=== PATIENT | female | born 1995 | race Caucasian/White ===

== ENCOUNTER 2024-01-17 14:25 | Outpatient (CLI) | payer OTHER, SELFPAY ==
[2024-01-17 14:36] VITALS: BP 125/70; PULSE 70
[2024-01-17 14:37] VITALS: PULSE 74; O2SAT 99
--- NOTE | 2024-01-17 14:43 | CRLHL7_ITS ---
For Patients: As a result of the Cures Act, medical imaging exams and procedure reports are released immediately into your electronic medical record. You may view this report before your referring provider. If you have questions, please contact your health care provider. INDICATION: Fall. Cervical check. TECHNIQUE: Transabdominal pelvic ultrasound, limited. COMPARISON: None. FINDINGS: Single living intrauterine with vertex orientation. heart rate is 150 beats per minute. Anterior placenta with possible posterior accessory component otherwise appears intact. Amniotic fluid appears within normal limits, with single deepest pocket of 6.4 cm. Closed cervical length is 3.3 cm. IMPRESSION: 1. Single living intrauterine with heart rate of 150 beats per minute. 2. Closed cervical length of 3.3 cm. Dictated by Jaun Irving MD @ 01/17/2024 4:44:55 PM Dictated by: Jaun Irving MD @ 01/17/2024 16:45:04 (Electronically Signed)
[2024-01-17 14:52] VITALS: RESP 16; TEMP 36.6
[2024-01-17 16:53] LABS: Clue Cells No Clue Cells Seen (None Seen); Trichomonas No Trichomonas Seen (None Seen); Yeast No Yeast Seen (None Seen)
[2024-01-17 18:29] VITALS: BP 117/70; PULSE 64
[2024-01-17 18:30] VITALS: RESP 18; TEMP 36.6
--- NOTE | 2024-01-17 19:50 | PC.OBNST ---
NST Note NST Note Start: 01/17/24 14:43 Freq: ONCE Status: Active Protocol: Document 01/17/24 19:48 MMB (Rec: 01/17/24 19:49 MMB [id number]) NST Note 2 Para (# of births) 1 EDC 03/27/24 Gestational Age In Weeks & Days 30 Weeks & 0 Days Patient Presented with Complaint(s) of Contractions/cramping, Observation after an injury If Observation after an injury, describe Fall onto buttock at 1015 onto hardwood Reactive Yes Appropriate for Gestational Age Yes RANDOLPH Hayes RN Date 01/17/24 Reactive Yes Appropriate for Gestational Age Yes RANDOLPH Mendoza RN Date 01/17/24 OB NST charge Yes Complete NST Note via Write Note Yes The provider's electronic signature indicates the NST is reactive/appropriate for gestational age. *Note to provider: If an addendum is required, open the patient's chart and click on the note under the Nurse/Allied Health tab.
== END 2024-01-17 18:40 | disposition home or self-care (01) ==
LOC: OB OUT 14:25 → OB 14:25
PROVIDERS: PCP Family Medicine; Visit Provider Family Medicine
DX: O47.03 False labor before 37 completed weeks of gestation, third trimester (principal); Z3A.30 30 weeks gestation of pregnancy
CPT/HCPCS: 59025; 76815; 76817; 84112; 87210; G0463

== ENCOUNTER 2024-03-20 05:15 | Inpatient (IN) | payer OTHER, SELFPAY ==
[2024-03-20] VITALS (14 sets, daily range): BP systolic 116–138; BP diastolic 61–81; PULSE 69–96; RESP 16–18; TEMP 36.7–36.9; BMI 23.4
--- NOTE | 2024-03-20 05:55 | PM.OBHPLI ---
OB - H&P: HPI Labor/Induction History of Present Illness Time Seen by Provider: 05:55 Date Seen: 03/20/24 Chief Complaint: The patient is a 28 year old 2 para 1 at 39.0 weeks gestation by LMP and consistent with 8 week ultrasound, who presents with active labor. Patient was scheduled for IOL for IUGR today. However, came in jesus and is 6 cm. Chief complaint: Maternity : 2 Para: 1 Date of last menstrual period: 06/21/23 Estimated date of delivery: 03/27/24 Gestational age based on last menstrual period: 39 Indications for induction: other (Growth restriction. ) Narrative: Nikkie Mak is a 28 year old female 2 para 1 at 39.0 weeks gestation by LMP and consistent with 8 week ultrasound, who presents with active labor. Patient was scheduled for IOL for IUGR today. However, came in jesus and is 6 cm. Patient's membranes were swept yesterday in clinic. She started jesus shortly therafter (was 3-4 cm in clinic). She contracted irregularly throughout the day. She woke at 3am with more intense contractions. She has not had loss of fluid. Has had some bloody show following membrane sweep in clinic. She otherwise feels well. Tired, didn't get much rest last night. Comments: IUGR, likely accessory placental lobe. History of Present Dating criteria: based on LMP (consistent with 8 week ultrasound) care: good care Ultrasounds: normal 1st trimester US and abnormal US findings Abnormal ultrasound findings: Patient has Growth restriction. Did have increased resistance of umbilical dopplers at 36 weeks, that has resolved and BPP weekly have been within normal limits. Estimated growth this week was 2920 (percentile was not given by perinatology). Recommended IOL at 39 weeks. Percentiles have been 48% at 20 weeks, 8% at 28 weeks, 30 %ile at 30 weeks, 7 percentile at 34 weeks (ac <2%), 15 % at 35 weeks. complications comment: IUGR, likely accessory placenta lobe. Medical complications: none Labs Blood type: AB (+) positive Rubella: immune RPR/VDLR: nonreactive GBS status: negative HBsAG: negative Review of Systems Status of ROS: Reports: 10 or more systems reviewed and unremarkable except as noted in History and below Meds Home Medications and Allergies Home Medications ?Medication ?Instructions ?Recorded ?Confirmed ?Type and DHA 1 tab PO DAILY 01/17/24 01/17/24 History Allergies Allergy/AdvReac Type Severity Reaction Status Date / Time minocycline Allergy Severe Hives Verified 01/17/24 15:03 OB - H&P: Exam Physical Exam: Vital signs: Temp Pulse Resp BP 98.1 F 96 18 117/67 03/20/24 05:50 03/20/24 05:07 03/20/24 05:50 03/20/24 05:07 Constitutional: Constitutional: no acute distress (uncomfortable and breathing through contractions. ) Routine HEENT Exam: Head: Present atraumatic and normal inspection Routine Neck Exam: Neck: Present full ROM Routine Respiratory Exam: Respiratory: Present CTA bilaterally Routine Cardiovascular Exam: Cardiovascular: RRR, S1 and S2 Detailed Labor and Delivery Exam: Patient Gravid: Yes Dilation (cm): 6 Effacement (%): 90 Contraction frequency (min): 3 Contraction intensity: Strong/Firm Fetus (Single): Station: -2 Amniotic Membrane Status: intact Heart Rate Baseline: 120 Monitor Accelerations: Present Monitor Decelerations: Variable Intermediate Variability: Moderate (6-25) Routine Skin Exam: Present intact Routine Neurological Exam: Present alert and oriented X3 Routine Psychiatric Exam: Present normal affect OB - Problem Based A/P Additional Plan (1) Term : Problem details: Presented in active labor Status: Acute (2) IUGR (intrauterine growth restriction): Problem details: IUGR, will need peds at delivery. Dr. Blum aware Status: Acute Delivery/Labor/Induction Plan Plan: expectant management (may consider AROM if not progressing. )
--- NOTE | 2024-03-20 07:34 | PM.OBPNL ---
Subjective Time Seen by Provider: 07:34 Date Seen: 03/20/24 Narrative: Patient continues to breathe through contractions. She is feeling contractions are the same. Objective Exam: comfortable between contractions Vital Signs: Last Vital Signs Temp 98.1 F 03/20/24 05:50 Pulse 96 03/20/24 05:07 Resp 18 03/20/24 05:50 BP 117/67 03/20/24 05:07 Pelvic Exam Dilation (cm): 7 Effacement (%): 90 Station: 0 Contractions Monitor mode: External Contraction Frequency: 3-4 Contraction pattern: Regular Contraction intensity: Strong/Firm Pitocin Rate (mU/min): 0 Assessment Assessment: active labor Station: 0 Amniotic Membrane Status: AROM (light meconium fluid) Status: Category l Heart Rate Baseline: 120 [facility] Variability: Moderate (6-25) Monitor Accelerations: Present Monitor Decelerations: Variable Labor Progress: Progressing well, AROM now with small amount of meconium stained fluid (light) Plan Plan: - expectant management - anticipate - Dr. Blum will attend for peds, will alert her when needed (updated and on standby)
[2024-03-20] MEDS: OXYTOCIN 10 UNIT/ML INJ IM (08:35)
[2024-03-20] MEDS: LIDOCAINE 1 % PF 30 ML INJECTION (08:41)
--- NOTE | 2024-03-20 09:10 | W.PM.OBVAGDE ---
OB Procedure Vag Delivery Mother Details Mother Details: The patient is a 28 year-old, 2, Para 1, admitted on 03/20/24 at Days gestation in active labor. : 2 Para: 1 Weeks Gestation: 39.0 Admission Date: 03/20/24 Additional Details Amniotic Membrane Status: AROM Amniotic Membrane Rupture Date: 03/20/24 Amniotic Membrane Rupture Time: 07:14 Amniotic Membrane Fluid Description: Meconium Stained (light) Analgesia/Anesthesia Type: None Waterbirth: No Pitcoin: No Intrapartal Events: Labor Augmentation Delivery augmentation: rupture of membranes Labor Onset: 04:55 Complete: 08:22 Pushin:22 Heart: heart tones during second stage showed deep decels with contractions and recovering between. Delivery Details Delivery Date: 03/20/24 Delivery Time: 18:29 Route of delivery: Gender: Female Infant Viability: Alive; Heart Rate Present Position at Delivery: OA Delivery Details: Patient was admitted for active labor at 6 cm at 5am after starting contractions at 0300 this am (notably was scheduled for IOL for IUGR). Patient progressed well. We did AROM to augment labor at 0714 with light meconium fluid. She started feeling pushy and we reduced an anterior lip at 0822 to make her complete. Patient pushed very effectively, baby crowned over the last 3 contractions. Patient had tight nuchal cord that was delivered through. She delivered over intact perineum via spontaneous vaginal delivery. Shoulders delivered without difficulty. was placed on maternal abdomen.? Cord was clamped and cut after a 30-60 second delay. Nose and mouth were bulb suctioned.? Infant weight 3030 grams. 1 Minute Interval Total Score: 7 5 Minute Interval Total Score: 9 Additional Details Shoulder Dystocia: No Placenta Delivery Time: 08:34 Placental Delivery Description: Spontaneous (patient had accessory lobe with umbilical cord originating from accessory lobe. ) Delivery repair: Vicryl Procedure Done: Global Blood Loss: 50 Laceration: Perineal - 1st Degree (small repair done with figure 8 stitch) Episiotomy Description: None Blood Loss Measurement Type: EBL Bakri Used: No Sponge/Need Count Correct: Yes Cord Vessel Description: 3 Vessels, Tight and Delivered through Event Summary Status: Mother and were stable after delivery. Disposition: no change
[2024-03-20] MEDS: IBUPROFEN 600 MG TABLET PO ×2 (13:12→19:58)
[2024-03-21 00:12] VITALS: BP 122/79; PULSE 66; RESP 16; TEMP 36.9
[2024-03-21 05:39] VITALS: BP 122/85; PULSE 76; RESP 16; TEMP 36.6
[2024-03-21 06:19] LABS: Hemoglobin* 13.2 gm/dL (12.0-16.0)
--- NOTE | 2024-03-21 08:03 | PM.OBDSVD1 ---
DS: Providers Provider Date Seen: 03/21/24 Date of admission: 03/20/24 05:15 Primary care physician: Bessie Kirkland MD Admitting Clinician: Bessie Kirkland MD Attending Physician on discharge: Bessie Kirkland MD Date of Discharge: 03/21/24 DS: Diagnosis Discharge Diagnosis (1) Vaginal delivery: Status: Acute (2) Term : Status: Acute Problem details: Presented in active labor Exam Const: Vital Signs, click to edit/add: Vital Signs - 24 hr 03/20/24 08:49 03/20/24 08:49 03/20/24 09:05 Temperature 98.3 F Pulse Rate 90 92 Pulse Rate [Pulse Oximeter] Respiratory Rate 16 Blood Pressure 138/81 129/81 Blood Pressure [Le ft Arm] [facility] 03[facility] 09:05 03/20/24 09:19 03/20/24 09:19 Temperature Pulse Rate 75 Pulse Rate [Pulse Oximeter] Respiratory Rate 16 16 Blood Pressure 127/66 Blood Pressure [Le ft Arm] [facility] 03/20/24 09:34 03/20/24 09:34 03/20/24 09:49 Temperature Pulse Rate 75 72 Pulse Rate [Pulse Oximeter] Respiratory Rate 16 Blood Pressure 118/66 124/68 Blood Pressure [Le ft Arm] [facility] 03/20/24 09:49 03/20/24 10:04 03/20/24 10:04 Temperature Pulse Rate 69 Pulse Rate [Pulse Oximeter] Respiratory Rate 16 16 Blood Pressure 128/74 Blood Pressure [Le ft Arm] [facility] 03/20/24 10:19 03/20/24 10:19 03/20/24 10:34 Temperature Pulse Rate 70 Pulse Rate [Pulse Oximeter] Respiratory Rate 16 Blood Pressure 123/70 127/70 Blood Pressure [Le ft Arm] [facility] 03/20/24 10:34 03/20/24 10:34 03/20/24 11:58 Temperature 98.5 F Pulse Rate 71 Pulse Rate [Pulse Oximeter] 77 Respiratory Rate 16 Blood Pressure Blood Pressure [Le ft Arm] 122/74 [facility] 03/20/24 15:50 03/20/24 19:59 03/21/24 00:12 Temperature 98.2 F 98.4 F Pulse Rate Pulse Rate [Pulse Oximeter] 73 82 66 Respiratory Rate 16 16 16 Blood Pressure Blood Pressure [Le ft Arm] 120/73 118/70 122/79 Oxygen Delivery Me thod Room Air Room Air Room Air 03/21/24 05:39 Temperature 97.9 F Pulse Rate Pulse Rate [Pulse Oximeter] 76 Respiratory Rate 16 Blood Pressure Blood Pressure [Le ft Arm] 122/85 Oxygen Delivery Me thod Common normals: no apparent distress and average body habitus HENMT: Common normals: normocephalic Head and scalp: normocephalic Eye: Common normals: PERRL and EOMs intact bilaterally Pupil: PERRL Resp: Common normals: normal respiratory effort Cardio: Common normals: regular rate and regular rhythm Rate: regular rate Rhythm: regular rhythm GI: Common normals: soft to palpation (uterus firm 2 cm below umbilicus) Palpation: soft (uterus firm 2 cm below umbilicus) Extremity: Common normals: no pedal edema OB - DS: Summary Hospital Course Hospital Course: The patient is a 28 year old G 2 P 2 at 39 weeks gestation that was admitted to the Center on 03/20/24 for active labor. She had an uncomplicated vaginal delivery. She delivered a viable femail infant. She is breast feeding. the patient has done well. Peripartum Data Infant delivery method: Vaginal complications: none Infant Gender: Female Infant Discharge Plan: Home Status at Discharge Functional status at discharge: independent ambulation Overall status at discharge: patient is progressing back to baseline Time Spent with Patient Time attestation: Total time spent providing and/or coordinating discharge services: Time spent: Less than 30 minutes Discharge Plan Discharge Disposition: Home, Self-Care Date of Admission: 03/20/24 05:15 Attending Provider on Discharge: Vanessa Kaba Primary Care Provider: Bessie Kirkland Condition: Improved Anticipated Discharge Date/Time: 03/21/24 08:05 Discharge Medications: Continued and DHA 1 tab PO DAILY Discharge Orders: Discharge Order (Routine); Ordered 03/21/24 Ordered By: Vanessa Kaba Patient Education: OB Vaginal/Breast Feeding Activity Level: No Restrictions Activity Detail: nothing per vagina x6 weeks Discharge Diet: Regular Follow Up Appointments: Bessie Kirkland MD [Primary Care Provider] - (6 weeks) Forms: [facility] Info Instructions
[2024-03-21 11:00] VITALS: BP 120/80; PULSE 72; RESP 16; TEMP 36.6
[2024-03-21] MEDS: DOCUSATE SODIUM 100 MG CAPSULE PO (11:36)
== END 2024-03-21 12:38 | disposition home or self-care (01) | DRG 807 ==
LOC: OB OUT 05:16 → OB 05:17
PROVIDERS: Admitting Provider Family Medicine; PCP Family Medicine; Visit Provider Family Medicine
DX: O70.0 First degree perineal laceration during delivery (principal); Z37.0 Single live birth; O36.5930 Maternal care for other known or suspected poor fetal growth, third trimester, not applicable or unspecified; Z3A.39 39 weeks gestation of pregnancy; O77.0 Labor and delivery complicated by meconium in amniotic fluid
CPT/HCPCS: 36415; 85018; 86592; 88307; A9270; J2001; J2590

== ENCOUNTER 2024-04-03 12:58 | Outpatient (CLI) | payer OTHER, SELFPAY ==
--- NOTE | 2024-04-03 16:48 | W.PM.LAC.MC ---
Consult Note - Mom Date of Visit Date of visit: 04/03/24 [employer] consultant: Vivienne Max Visit Code: Visit Patient's Information Phone number: [phone] : 2 Para: 2 Allergies minocycline Allergy (Severe, Verified 03/20/24 06:33) Hives Mother's Medical History: Medical History (Updated 03/29/24 @ 00:00 by Background Daemon) Vaginal delivery ?O80 - Encounter for full-term uncomplicated delivery (ICD-10) IUGR (intrauterine growth restriction) Delivery Information Delivery type: Vaginal Weeks Gestation: 39w Gestational Age: AGA Weight: 3.03 kg Discharge Weight: 2.79 kg Baby's Information Medications: Vit D drops, gas drops occasionally Baby's Age at Visit: 14 d Baby's Provider or Clinic: [facility] Jaundice: No Reason for Consult Reason for Consult: mom questioning milk transfer volume and questions lip/tongue ties Past Experience Past Experience: Yes Current Frequency of Day Feedings: every 2.5-3 hours Frequency of Night Feedings: every 3 hours Both Breasts: Yes Suck: strong Latch: wide, deep Length of Time: 10-15 min most feedings Goals: at least 1 year Pumping Pumping: No Supplementing EMB Supplement: No Formula Supplement: No Baby Elimination Number of Wet Diapers a Day: 6+ a day Number of BM a Day: 5-6/day Breast/Nipple Condition Engorgement: No Maternal Nipple Condition - Left: Common Nipple Maternal Nipple Condition - Right: Common Nipple Sore Nipples: No Onsite Pre-Feed weight: 3.35 kg Post-Feed weight: 3.456 kg Milk Transferred (mL): 106 Pre-Nursing Left Nipple: Within Normal Limits Pre-Nursing Right Nipple: Within Normal Limits Post-Nursing Left Nipple: Within Normal Limits Post-Nursing Right Nipple: Within Normal Limits Assessments/Interventions Assessments/Interventions: Reassured excellent milk transfer in a feeding mom describes as pretty typical. Nursed 14 min on one breast and then 10 min on second breast. No unusual noises heard with nursing (clicking, smacking etc) Upper lip with slight tight frenulum-does not seem to impact nursing. Possible tight posterior tongue tie - but again does not seem to impact nursing. Mom has an appt to get that evaluated by a Peds Dentist 05/08; not having nipple pain so currently not an issue. Mom to continue with current nursing plan; feels reassured. Time spent reviewing records and face to face with mom and baby:60 minutes Meds Home Medications and Allergies Home Medications ?Medication ?Instructions ?Recorded ?Confirmed ?Type and DHA 1 tab PO DAILY 01/17/24 03/20/24 History Allergies Allergy/AdvReac Type Severity Reaction Status Date / Time minocycline Allergy Severe Hives Verified 03/20/24 06:33
== END 2024-04-03 12:59 | disposition home or self-care (01) ==
PROVIDERS: PCP Family Medicine; Visit Provider Obstetrics & Gynecology
DX: Z39.1 Encounter for care and examination of lactating mother (principal)
CPT/HCPCS: G0463

== ENCOUNTER 2024-08-17 09:02 | Emergency (ER) | payer OTHER, SELFPAY ==
[2024-08-17 09:08] VITALS: BP 105/68; PULSE 106; RESP 18; TEMP 37; O2SAT 99
--- NOTE | 2024-08-17 09:37 | ED.GENADULT ---
HPI - General Adult General Date Seen: 08/17/24 Chief complaint: Cough Stated complaint: fever,cough,congestion,fatigue Time Seen by Provider: 08/17/24 09:36 History of Present Illness HPI narrative: 28-year-old female presenting to the ER today for fever, cough, nasal congestion. According to triage nurse she has been sick for 5 days with fever, stuffy nose and runny nose, cough with production of sputum, malaise, fatigue, body aches, chills. Per the patient she says she has actually had a cough ongoing for a week or 2 but then got worse about 4 or 5 days ago. In addition to the cough, sputum has changed and is now more purulent. She has also should her 1 fevers. She has also had some body aches and chills. She is not really short of breath. No chest pain. Sometimes when she breathes she feels like she can feel fluid gurgling, mostly in her right lung. She has no known sick exposures. She has been trying to wear a face mask so she does not get her or her toddler sick. She has been taking Tylenol and ibuprofen for fever. She has no history of diabetes. No history of asthma or lung disease. Nonsmoker. No other symptoms with the fever. No dysuria. No abdominal pain. No diarrhea. No breast pain or mastitis (she recalls she has had mastitis once in the past and is definitely not having that symptom today). Related Data Home Medications ?Medication ?Instructions ?Recorded ?Confirmed and DHA 1 tab PO DAILY 01/17/24 03/20/24 Allergies Allergy/AdvReac Type Severity Reaction Status Date / Time minocycline Allergy Severe Hives Verified 03/20/24 06:33 [facility] Medical History (Updated 08/17/24 @ 11:51 by Henrry Connolly MD) Vaginal delivery ?O80 - Encounter for full-term uncomplicated delivery (ICD-10) IUGR (intrauterine growth restriction) Social History What is your current living situation?: I presently have a place to live Problems where you live: no known problems In the past 12 months, utilities in danger of being shut off: no In past 12 months, lack of transportation kept you from medical appts, meetings, work, or getting things needed for daily living: no In the past 12 mos, have been you worried that your food would run out before you had money to buy more?: never true In the past 12 mos, the food you bought just didn't last and you didn't have money to buy more?: never true Smoking Status: Never smoker How often do you have a drink containing alcohol: monthly or less AUDIT-C Alcohol total score: 1 Non-prescribed substance use: denies use How often does anyone, including family, friends and others, physically hurt you: never How often does anyone, including family, friends and others, insult or talk down to you: never How often does anyone, including family, friends and others, threaten you with harm: never How often does anyone, including family, friends and others, scream or curse at you: never Exam Narrative: Exam Narrative: Constitutional: Appears well-developed and well-nourished. Alert. Conversant. Non toxic. HENT: Head: Atraumatic. Nose: Nose normal. Mouth/Throat: Oral mucosa is clear and moist. no trismus. Pharynx normal. Tonsils symmetric. No tonsillar enlargement, erythema, or exudate. Eyes: Conjunctivae normal. EOM normal. Pupils equal, round, and reactive to light. No scleral icterus. Neck: Normal range of motion. Neck supple. No tracheal deviation present. Cardiovascular: Normal rate, regular rhythm. No gallop. No friction rub. No murmur heard. Symmetric radial artery pulses Pulmonary/Chest: Effort normal. No stridor. No respiratory distress. No wheezes. Right basilar rales and rhonchi . No tenderness. Abdominal: Soft. No distension. No mass. No tenderness. No rebound. No guarding. Musculoskeletal: RUE: Normal range of motion. No tenderness. No deformity LUE: Normal range of motion. No tenderness. No deformity RLE: Normal range of motion. No edema. No tenderness. No deformity LLE: Normal range of motion. No edema. No tenderness. No deformity Neurological: Alert and oriented to person, place, and time. Normal strength. CN II-VII intact. No sensory deficit. GCS eye subscore is 4. GCS verbal subscore is 5. GCS motor subscore is 6. Normal coordination Skin: Skin is warm and dry. No rash noted. No pallor. Normal capillary refill. Psychiatric: Normal mood. Normal affect. Const: Vital Signs, click to edit/add: Vital Signs - 24 hr 08/17/24 09:08 08/17/24 11:17 Temperature 98.6 F 99.7 F H Pulse Rate [Left P ulse Oximeter] 106 H 93 Respiratory Rate 18 18 Blood Pressure [Ri ght Upper Arm] 105/68 114/75 Pulse Oximetry 99 95 Oxygen Delivery Me thod Room Air Room Air Course Vital Signs Vital signs: Initial Vital Signs Temperature 98.6 F 08/17/24 09:08 Temperature Source Oral 08/17/24 09:08 Pulse Rate 106 H 08/17/24 09:08 Respiratory Rate 18 08/17/24 09:08 Blood Pressure 105/68 08/17/24 09:08 Blood Pressure Mean 80 08/17/24 09:08 Blood Pressure Position Sitting 08/17/24 09:08 Pulse Oximetry 99 08/17/24 09:08 Oxygen Delivery Method Room Air 08/17/24 09:08 Vital Signs Temperature 98.6 F 08/17/24 09:08 Pulse Rate 106 H 08/17/24 09:08 Respiratory Rate 18 08/17/24 09:08 Blood Pressure 105/68 08/17/24 09:08 Pulse Oximetry 99 08/17/24 09:08 Oxygen Delivery Method Room Air 08/17/24 09:08 Temperature 99.7 F H 08/17/24 11:17 Pulse Rate 93 08/17/24 11:17 Respiratory Rate 18 08/17/24 11:17 Blood Pressure 114/75 08/17/24 11:17 Pulse Oximetry 95 08/17/24 11:17 Oxygen Delivery Method Room Air 08/17/24 11:17 Medical Decision Making [facility] Narrative Medical decision making narrative: This patient presents for evaluation of cough ongoing for a couple of weeks, now getting worse, with new fever and chills for the past 4 5 days. Viral testing negative for coronavirus, influenza.. There is no signs at this point of serious bacterial infection such as OM, RPA, epiglottitis, [employer], strep pharyngitis, pneumonia, sinusitis, meningitis, bacteremia, serious bacterial infection. With abnormal lung findings and worsening cough and new fever, consider possible pneumonia. Chest x-ray does confirm a right lower lobe infiltrate which fits with my exam. There are no gastrointestinal symptoms at this point and no signs of dehydration. Will treat with antibiotics for community-acquired pneumonia. Given current problems for atypical pneumonias will start the patient on Zithromax. This would be safe for . Prescription through [facility] provided for convenience. Close followup with primary care physician is indicated. Return to ED for fever > 103, worsening trouble breathing, chest pain, hemoptysis, weakness, confusion, or other worsening. Lab Data Labs: Lab Results 08/17/24 Range/Units 09:20 SARS-CoV-2 (PCR) Negative SARS-CoV-2 (Negative) Influenza Type A (PCR) Negative PCR FLU A (Negative) Influenza Type B (PCR) Negative PCR FLU B (Negative) RSV (PCR) Negative PCR RSV (Negative) Discharge Plan Discharge Clinical Impression: Pneumonia Patient Disposition: Home, Self-Care Condition: Stable Instructions: Community Acquired Pneumonia (DC) Additional Instructions: Please start on the antibiotics today intake them once daily for 5 days. Usually a pneumonia will start to get better after about 24 or 48 hours of antibiotics. You should stay home and avoid exposure to other people until your symptoms are getting better all around and you have been afebrile for 24 hours. If you get worse, for instance if you have but trouble breathing, high fever, weakness, chest pain, bloody sputum, or if you have any other concerns please come back to the ER right away. If you are not substantially improved by Sunday or , please recheck with the ER or with your regular doctor. Prescriptions: No Action and DHA 1 tab PO DAILY Follow Up/Referrals: Bessie Kirkland MD [Primary Care Provider] - Stand Alone Forms: [facility] Info Instructions
[2024-08-17 10:17] LABS: PCR FLU A Negative PCR FLU A (Negative); PCR FLU B Negative PCR FLU B (Negative); PCR RSV Negative PCR RSV (Negative); SARS PCR* Negative SARS-CoV-2 (Negative)
--- NOTE | 2024-08-17 10:42 | CRLHL7_ITS ---
For Patients: As a result of the Cures Act, medical imaging exams and procedure reports are released immediately into your electronic medical record. You may view this report before your referring provider. If you have questions, please contact your health care provider. INDICATION: Cough fever TECHNIQUE: Two view chest. FINDINGS: Normal cardiac mediastinal silhouette. Right lower lobe airspace opacity reflecting pneumonia. Left lung is clear no effusion. Dictated by Tori Fuller MD @ 08/17/2024 11:40:15 AM (Electronically Signed)
[2024-08-17 11:17] VITALS: BP 114/75; PULSE 93; RESP 18; TEMP 37.6; O2SAT 95
== END 2024-08-17 12:03 | disposition home or self-care (01) ==
PROVIDERS: Emergency Provider Emergency Medicine; PCP Family Medicine
DX: J18.9 Pneumonia, unspecified organism (principal)
CPT/HCPCS: 71046; 87631; 99283; 99284

== ENCOUNTER 2024-12-03 11:10 | Outpatient (CLI) | payer OTHER, SELFPAY ==
--- NOTE | 2024-12-03 11:15 | CRLHL7_ITS ---
For Patients: As a result of the Century Cures Act, medical imaging exams and procedure reports are released immediately into your electronic medical record. You may view this report before your referring provider. If you have questions, please contact your health care provider. INDICATION : Left-sided thyroid nodule. TECHNIQUE : Ultrasound-guided fine needle aspiration of thyroid nodule. COMPARISON : 11/28/2024 FINDINGS : PROCEDURE: After the informed consent and time-out, multiple fine needle aspirations were obtained from the thyroid nodule. Fine needle performed. 25 gauge needles were used. Lidocaine was used for local anesthesia. The preliminary cytology was adequate for interpretation. Real-time imaging was used for guidance and needle placement. Post imaging ultrasound demonstrates no immediate complication. IMPRESSION : Successful fine needle aspiration of left thyroid nodule. Dictated by Fadi Louise MD @ 12/03/2024 12:39:37 PM (Electronically Signed)
== END 2024-12-03 11:11 | disposition home or self-care (01) ==
LOC: US 11:11
PROVIDERS: PCP Family Medicine; Visit Provider Family Medicine
DX: E04.1 Nontoxic single thyroid nodule (principal); C80.1 Malignant (primary) neoplasm, unspecified
CPT/HCPCS: 10005; 76942; 88173